=== PATIENT | male | born 1960 | race Caucasian/White ===

== ENCOUNTER 2019-06-03 16:26 | Emergency (ER) | payer BC, OTHER ==
[2019-06-03] MEDS ORDERED: HYDROmorphone 0.5 MG/0.5 ML SYRINGE ONE (16:49)
[2019-06-03] MEDS ORDERED: Ondansetron PF 4 MG/2 ML Vial ONE ×2 (17:25→18:43)
[2019-06-03 17:32] LABS: Lactic Acid 0.8 mmol/L (0.5-2.2)
[2019-06-03 17:39] LABS: ALT (SGPT) 99 U/L (8-55); AST (SGOT) 42 U/L (5-34); Albumin 3.6 g/dL (3.5-5.0); Alkaline Phosphatase 60 U/L (40-110); Anion Gap 16 mmol/L (10-20); BUN (Urea Nitrogen) 20 mg/dL (8.4-25.7); Bilirubin, Total 0.8 mg/dL (0.2-1.2); Calc. Creatinine Clearance 0 mL/min (70-130); Calcium 8.9 mg/dL (7.8-10.44); Carbon Dioxide 23 mmol/L (22-29); Chloride 102 mmol/L (98-107); Estimated GFR-MDRD 59; Glucose 126 mg/dL (70-105); Lipase 7 U/L (8-78); Potassium 3.5 mmol/L (3.5-5.1); Protein, Total 7.6 g/dL (6.0-8.3); Sodium 137 mmol/L (136-145)
[2019-06-03 17:50] LABS: Band 11 % (5-11); Eosinophils 4 % (0-10); Hemoglobin 18.2 g/dL (14.0-18.0); Lymphocytes 33 % (21-51); MDiff Complete? YES; Mean Corpuscular HGB CONC 32.2 g/dL (32.0-36.0); Mean Corpuscular Volume 93.2 fL (78.0-98.0); Monocytes 11 % (0-10); Neutrophil 41 % (42-75); Platelet Count 221 thou/uL (130-400); RBC Distribution Width 12.5 % (11.5-14.5); Red Blood Cell (RBC) Count 6.08 mill/uL (4.70-6.10); White Blood Cell (WBC) Count 7.2 thou/uL (4.8-10.8)
[2019-06-03] MEDS ORDERED: Loperamide HCl 2 MG CAP PO SCH (18:00)
== END 2019-06-03 19:10 | disposition home or self-care (01) ==
LOC: BURERS 16:26
DX: R11.2 Nausea with vomiting, unspecified (principal); R19.7 Diarrhea, unspecified; I10 Essential (primary) hypertension; Z79.899 Other long term (current) drug therapy
CPT/HCPCS: 80053; 83605; 83690; 85025; 96361; 96374; 96376; J1170; J2405